=== PATIENT | male | born 1985 | race Caucasian/White ===

== ENCOUNTER 2024-08-06 14:28 | Outpatient (AMB) | payer OTHER, SELFPAY ==
[2024-08-06 14:47] VITALS: BP 132/70; PULSE 74; O2SAT 98; BMI 27.6
--- NOTE | 2024-08-06 14:47 | A.OFFVIS_ITS ---
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 He was referred by PCP for pulmonary evaluation. He was recently started on Singulair and Omeprazole for chronic cough 1-2 weeks ago with significant improvement of cough. He denies dyspnea, chest tightness or wheezing at this time. He continues to use his albuterol multiple times per week with good effect. He was d with asthma as a child, never requiring intubation. He has noticed his asthma symptoms have been worsening over the last few years, previously on Advair with good effect. He has been evaluated by an privacy attorney in the past with multiple environmental allergies, no recent allergy testing. 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 He reports mother with chronic bronchitis otherwise no pertinent family history. [facility] Social History (Updated 08/06/24 @ 14:58 by Lisa Montano LPN) Patient Tobacco Use Status: Never used Tobacco Review of Systems Const Denies chills, Denies excessive sweating, Denies fever(s), Denies headache(s) and Denies night sweats Eyes Denies dry eyes, Denies irritation and Denies itchy eyes ENT Reports Normal hearing present, Denies headache(s), Denies nasal congestion, Denies nasal discharge, Denies post nasal drip and Denies sore throat Card Denies chest pain, Denies chest pain at rest, Denies chest pain with activity, Denies claudication, Denies leg edema, Denies dyspnea, Denies dyspnea on exertion, Denies orthopnea and Denies paroxysmal nocturnal dyspnea Resp Denies chest congestion, Denies excessive phlegm production, Denies pain on inspiration, Denies pain with cough, Denies dyspnea, Denies dyspnea on exertion, Denies stridor and Denies wheezing Musc Denies myalgias Neuro Reports Normal hearing present and Denies headache(s) Endo Denies excessive sweating Yovani/Lymph Denies lymphadenopathy Aller/Immun Denies itchy eyes, Denies seasonal rhinorrhea and Denies wheezing Physical Exam Vital Signs: Last Vital Signs Pulse 74 08/06/24 14:47 BP 132/70 08/06/24 14:47 Pulse Ox 98 08/06/24 14:47 Oxygen Delivery Method Room Air 08/06/24 14:47 BMI result Body Mass Index 27.6 Const General: cooperative, healthy appearing, comfortable, no acute distress, well developed and alert Orientation/consciousness: patient oriented x3 Limitations: no limitations HEENT Head: Yes normal to inspection, Yes normocephalic and Yes atraumatic Ears: hearing grossly normal bilaterally and external ears normal Eyes General: appearance normal, both eyes and all related structures Eyelids: Yes eyelids normal Sclerae: sclerae normal EOM: EOMs intact bilaterally Neck Neck: Yes normal visual inspection and Yes no lymphadenopathy Lymphatic: no lymphadenopathy noted Chest Chest palpation & inspection: normal inspection of the chest Resp Effort & Inspection: normal respiratory effort, able to speak in complete sentences, no audible wheezes, no cough, no stridor, not tachypneic, no tripod positioning and no use of accessory muscles Auscultation: diminished lung sounds Cardio Jugular venous distension: no JVD Rate: regular rate Rhythm: regular rhythm Skin Other: warm, dry General skin exam: no rashes or lesions noted Neuro General: patient oriented x3 Cranial nerves: Yes Normal hearing present Cognition (Neuro): normal cognition Gait exam (Neuro): Normal gait present Extrem General: Yes normal to inspection, Yes capillary refill normal, Yes no clubbing, cyanosis or edema and Yes no pedal edema Psych Appearance: grossly normal and well kempt Speech and movement: Normal speech and movement present and Clear speech present Affect: normal affect Attitude: cooperative Thought process: Normal thought process present Thought content: Normal thought content present Insight: Good insight present (Psych) Judgement: Good judgement present (Psych) Assessment & Plan Assessment & Plan (1) Asthma: Code(s): J45.909 - Unspecified asthma, uncomplicated Category: Medical (2) Environmental allergies: Code(s): Z91.09 - Other allergy status, other than to drugs and biological substances Category: Medical (3) Cough: Code(s): R05.9 - Cough, unspecified Category: Medical Plan Jeison presents for pulmonary evaluation for worsening asthma symptoms. Will empirically start Breo. Discussed importance of good oral hygiene to prevent thrush. Advised to continue Singulair. Will send for PFT, RAST and CXR. All questions were answered and patient is in agreement of plan. Will follow up in 6-8 weeks or sooner if needed. Orders: Orders Complete Blood Count Auto Diff Today Z91.09 - Other allergy status, other than to drugs and biological substances XR chest 2V Today R05.9 - Cough, unspecified Immunoglobulin E Today Z91.09 - Other allergy status, other than to drugs and biological substances Resp Allergy Profile Region I Today Z91.09 - Other allergy status, other than to drugs and biological substances PFT pulmonary function test Today J45.909 - Unspecified asthma, uncomplicated Medications: New fluticasone furoate-vilanterol 100-25 mcg/dose (Breo Ellipta) 1 inh inhalation DAILY 60 ea 3RF Coding Level of Care Code New Pt Level 4 (84988) Diagnoses Asthma J45.909 Environmental allergies Z91.09 Cough R05.9
== END 2024-08-06 15:24 | disposition home or self-care (01) ==
PROVIDERS: PCP Physician Assistant Medical; Referring Provider Physician Assistant Medical; Visit Provider Nurse Practitioner Family
DX: J45.909 Unspecified asthma, uncomplicated (principal); Z91.09 Other allergy status, other than to drugs and biological substances; R05.9 Cough, unspecified
CPT/HCPCS: 99204

== ENCOUNTER 2024-08-06 15:31 | Outpatient (REF) | payer OTHER, SELFPAY ==
[2024-08-06 17:34] LABS: MANUAL DIFF FLAG NO
[2024-08-06 17:39] LABS: Basophils Percent Auto 0.4 % (0-2); Eosinophils Percent Auto 0.4 % (0-4); Hematocrit 46.9 % (42.0-52.0); Hemoglobin 16.1 g/dl (14.0-18.0); Imm Gran Abs Auto 0.01 X10*3/uL (0.00-0.03); Imm Gran Pct Auto 0.1 % (0.0-0.4); Lymphocytes Percent Auto 29.5 % (20-40); Mean Corpuscular HGB Conc 34.3 g/dl (31.0-36.0); Mean Corpuscular Hemoglobin 31.3 pg (27.0-33.0); Mean Corpuscular Volume 91.2 fL (80.0-98.0); Mean Platelet Volume 10.1 fL (9.4-12.4); Monocytes Absolute Auto 0.4 X10*3/uL (0.1-1.2); Monocytes Percent Auto 6.4 % (2-11); Neutrophils Absolute Auto 4.4 x10*3/uL (2.0-8.3); Neutrophils Percent Auto 63.2 % (45-73); Platelet Count 259 X10*3/uL (160-400); Red Blood Count 5.14 X10*6/uL (4.60-5.80); Red Cell Distribution Width 12.9 % (11.0-16.0); White Blood Count 6.9 X10*3/uL (4.8-10.8)
[2024-08-09 22:23] LABS: Class Alternaria alternata 0; Class Aspergillus fumigatus 0; Class Bermuda Grass 0; Class Birch 0; Class Cat Dander 0; Class Cladosporium herbarum 0; Class Cockroach 0; Class Common Ragweed 0; Class Cottonwood 0; Class Derm. pterony 2; Class Dermatophagoides farinae 2; Class Dog Dander 0; Class Elm 0; Class Maple Box Elder 0; Class Mountain Cedar 0; Class Mouse Urine Protein 0; Class Mugwort 0; Class Oak 0; Class Penicillium crysogenum 0; Class Rough Pigweed 0; Class Sheep Sorrel 0; Class Sycamore 0; Class Timothy Grass 0; Class Walnut Tree 0; Class White Ash 0; Class White Mulberry 0; D001 IgE D pteronyssinus 1.91 kU/L; D002 - IgE D farinae 2.76 kU/L; E001 - IgE Cat Dander <0.10 kU/L; E005 - IgE Dog Dander <0.10 kU/L; E072-IgE Mouse Urine <0.10 kU/L; G002 IgE Bermuda Grass <0.10 kU/L; G006 - IgE Timothy Grass <0.10 kU/L; I006-IgE Cockroach, German <0.10 kU/L; Immunoglobulin E 16 kU/L (<OR=114); M001 IgE Penicillium chrysogen <0.10 kU/L; M002 - IgE Cladosporium herbar <0.10 kU/L; M003 - IgE Aspergillus fumigat <0.10 kU/L; M006 - IgE Alternaria alternat <0.10 kU/L; T001 IgE Maple/Box Elder <0.10 kU/L; T003 IgE Common Silver Birch <0.10 kU/L; T006 - IgE Cedar, Mountain <0.10 kU/L; T007 - IgE Oak, White <0.10 kU/L; T008 IgE Elm, American <0.10 kU/L; T010 - IgE Walnut <0.10 kU/L; T011 - IgE Maple Leaf Sycamore <0.10 kU/L; T014 - IgE Cottonwood <0.10 kU/L; T015 - IgE Ash, White <0.10 kU/L; T070 - IgE White Mulberry <0.10 kU/L; W001 - IgE Ragweed, Short <0.10 kU/L; W006 - IgE Mugwort <0.10 kU/L; W014 IgE Pigweed, Common <0.10 kU/L; W018 IgE Sheep Sorrel <0.10 kU/L
== END 2024-08-06 15:32 | disposition home or self-care (01) ==
LOC: HO.WFDLDS 15:31
PROVIDERS: Visit Provider Nurse Practitioner Family
DX: Z91.09 Other allergy status, other than to drugs and biological substances (principal)
CPT/HCPCS: 36415; 82785; 85025; 86003